=== PATIENT | male | born 1955 | race Caucasian/White ===

== ENCOUNTER → 2019-08-30 | Outpatient (CLI) | payer OTHER ==
--- NOTE | 2019-08-30 18:38 | CONS ---
CONSULTATION REASON FOR CONSULTATION: Sleep apnea. 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 Never fallen asleep while driving. Never been involved in a motor vehicle accident because of feeling drowsy or sleepy. He works midnight shift between 12 a.m. and 8 a.m. in the morning. He goes to bed around noontime, wakes up 6 p.m. in the afternoon, and he takes another nap for an hour or so just before going to work. His [place] score is zero. No snoring. No excessive fatigue or tiredness or sleepiness. No insomnia. No choking or gasping for air. No grinding of the teeth. No sleepwalking or sleeptalking. No dry mouth, anxiety or panic attacks. No palpitations. No heartburn at nighttime. 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 His neck size is 17 inches, his BMI is 35, and he has hypertension. He was referred to me for a sleep apnea evaluation. PAST MEDICAL HISTORY: 1. Hypertension. 2. Hyperlipidemia. PAST SURGICAL HISTORY: Negative. DRUG ALLERGIES: NOT KNOWN. MEDICATIONS: 1. Atorvastatin. 2. Losartan. SOCIAL HISTORY: No smoking, no history of alcoholism, no history of intravenous drugs. FAMILY HISTORY: Negative for sleep apnea. REVIEW OF SYSTEMS: Fourteen-point review of systems was done and was essentially negative other than things mentioned above in history of present illness. His sleep is nonfragmented and he does not wake up in the middle of the night. His weight is around 250 and he is losing weight by doing dietary changes. PHYSICAL EXAMINATION: Blood pressure is 158/89, pulse is 83, respirations 16, temperature 98.1. Height is 5 feet 8 inches, weight is 237. [place] score is zero. Neck size 17-1/2 inches. BMI is 35.5. GENERAL: Appears calm, comfortable. HEAD: Atraumatic/normocephalic. NECK: Neck is supple. No jugular venous distention. No goiter or neck masses. Mallampati class I. LUNGS: Clear to auscultation. HEART: Heart sounds are regular rate and rhythm. Normal S1, S2. No S3, S4. No murmurs. ABDOMEN: Soft, nontender. No organomegaly. EXTREMITIES: No edema, cyanosis, or clubbing. IMPRESSION: 1. Obstructive sleep apnea traits based on a BMI of 35 and some limited crowding of the posterior oropharynx. Mallampati is class I to II. No reported snoring. No reported witnessed apneas. No hypersomnia. [place] score is zero. Overall suspicion for sleep apnea is extremely low. 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 3. Hyperlipidemia. 4. Hypertension. PLAN: As mentioned, my overall suspicion is low. Will do a home sleep study and will decide if further treatment is needed. Encouraged further weight loss. He has good sleep hygiene measures. 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 No drowsiness or sleepiness during the day. Will do the home sleep study and will make further recommendations accordingly. LORENZA / ELENIN: [id number] /
== END | disposition home or self-care (01) ==
LOC: SLEEP 15:30
PROVIDERS: ATTEND Internal Medicine Critical Care Medicine
DX: G47.33 Obstructive sleep apnea (adult) (pediatric) (principal); E78.5 Hyperlipidemia, unspecified; I10 Essential (primary) hypertension; Z79.899 Other long term (current) drug therapy
CPT/HCPCS: 99211

== ENCOUNTER → 2022-07-15 | Outpatient (CLI) | payer MEDICARE ==
--- NOTE | 2022-07-15 15:12 | MR ---
EXAMINATION TYPE: MR knee RT wo con DATE OF EXAM: 07/15/2022 COMPARISON: Outside right knee x-ray June 24, 2022 HISTORY: Right knee pain, swelling, and locking after recent slip injury. TECHNIQUE: Multiplanar, multisequence images of the knee is performed without IV contrast. FINDINGS: MEDIAL MENISCUS: Oblique and globular signal posterior horn extends to inferior articular surface tow ards the central body. LATERAL MENISCUS: Anterior and posterior horns are intact without tear. CRUCIATE LIGAMENTS: The anterior and posterior cruciate ligaments are intact and unremarkable. COLLATERAL LIGAMENTS: The medial collateral ligament and lateral collateral ligament complex are inta ct. Mild to moderate fluid signal surrounds the medial collateral ligament. EXTENSOR MECHANISM: Visualized quadriceps and patellar tendons are intact. EFFUSION: Small to moderate size suprapatellar joint effusion. POPLITEAL CYST: Small to Moderate size popliteal/penny cyst measuring 5.7 cm long axis sagittal image 9. TRICOMPARTMENT SPACES: Moderate narrowing with [id number] spurring patellofemoral compartment . Mild spurring and narrowing otherwise seen. CARTILAGE: Chondromalacia patella with cartilaginous loss including full thickness defects along the posterior patellar pole. BONE MARROW SIGNAL: There are scattered areas of heterogeneous diminished T1 and increased T2 signal involving the posterior osseous patella. Some subchondral cystic change involving the posterior tibia l plateau near PCL insertion. OTHER: Some areas of susceptibility artifact anteriorly within the subcutaneous tissue could reflect foreign body, most prominent area of involvement is just below the lateral aspect of the right patell a near axial image 20. IMPRESSION: 1. Oblique full thickness tear posterior horn medial meniscus extending toward central body. 2. Mild to moderate MCL sprain injury. 3. Tricompartment degenerative changes that are most prominent and moderate to severe involving the p atellofemoral compartment. 4. Small to moderate size suprapatellar joint effusion. 5. Azymu-gt-hhtokqha sized popliteal cyst. Other findings as noted above.
== END | disposition home or self-care (01) ==
LOC: RADMRIMAIN 10:54
PROVIDERS: ATTEND Orthopaedic Surgery
DX: S83.411A Sprain of medial collateral ligament of right knee, initial encounter (principal); S83.241A Other tear of medial meniscus, current injury, right knee, initial encounter; M17.11 Unilateral primary osteoarthritis, right knee; M25.461 Effusion, right knee; M71.21 Synovial cyst of popliteal space [Baker], right knee